=== PATIENT | female | born 1935 | race Caucasian/White ===

== ENCOUNTER 2017-06-18 15:02 | Inpatient (IN) ==
[2017-06-18 17:11] LABS: MANUAL DIFF NEEDED? NO
[2017-06-18 17:18] LABS: BASO% 0.1 % (0.0-0.8); EOS# 0.22 X1000 (0.0-0.7); EOS% 2.2 % (0.0-10.0); HEMOGLOBIN 12.1 g/dL (12.0-16.0); IMM GRAN# 0.04 X1000 (0.0-0.04); IMM GRAN% 0.4 % (0.0-0.5); LYMPH# 1.16 X1000 (1.2-3.4); LYMPH% 11.8 % (20.5-51.1); MCH 33.4 PG (27-31); MCHC 34.6 g/dL (33-37); MCV 96.7 FL (81-99); MONO# 0.88 X1000 (0.11-0.59); MONO% 8.9 % (1.7-9.3); MPV 10.1 FL (7.4-10.4); NEUT% 76.6 % (42.2-75.2); PLT 118 X1000 (130-400); RBC 3.62 XMIL (4.2-5.4)
[2017-06-18 17:24] LABS: INR 1.21; PROTIME 12.9 Seconds (9.2-11.7); PTT 31.5 Seconds (22.0-36.0)
[2017-06-18 17:31] LABS: CALCIUM 9.6 mg/dL (8.8-10.2); POTASSIUM 4.2 mmol/L (3.5-5.1); TOTAL BILIRUBIN 0.93 mg/dL (0.20-1.00); TOTAL PROTEIN 5.8 g/dL (6.3-8.3)
--- NOTE | 2017-06-18 17:39 | PROVIDER DOCUMENTATION ---
HPI-Abdominal Pain/GI Problem - General Chief Complaint: GI Bleed Stated Complaint: blood in ileostomy bag Time Seen by Provider: 06/18/17 17:11 Source: patient, family Allergies/Adverse Reactions: Patient Allergies Allergy/AdvReac Type Severity Reaction Status Date / Time cefuroxime axetil * Allergy Intermediate RASH Verified 06/18/17 17:14 [From Ceftin] clindamycin HCl * Allergy Intermediate RASH Verified 06/18/17 17:14 [From Cleocin] clindamycin palmitate HCl * Allergy Intermediate RASH Verified 06/18/17 17:14 [From Cleocin] clindamycin phosphate * Allergy Intermediate RASH Verified 06/18/17 17:14 [From Cleocin] erythromycin base Allergy Intermediate RASH Verified 06/18/17 17:14 [Erythromycin Base] infliximab [From Remicade] Allergy Intermediate RASH Verified 06/18/17 17:14 Penicillins Allergy Intermediate RASH Verified 06/18/17 17:14 mesalamine [From Pentasa] AdvReac RASH Verified 06/18/17 17:14 Home Medications: Home Medication List Medication Instructions Recorded Confirmed Last Taken Type Cholecalciferol (Vitamin D3) 1,000 unit PO DAILY 06/18/17 06/18/17 06/17/17 History [Vitamin D3] Ciclopirox Olamine 0.77% Cream DIRECTED 06/18/17 Unknown History [Loprox 0.77% Cream] Cyanocobalamin (Vitamin B-12) 2,000 mcg PO DAILY 06/18/17 06/18/17 06/17/17 12: 00 History [Vitamin B12] Ergocalciferol (Vitamin D2) 50,000 unit PO DAILY 06/18/17 06/18/17 06/17/17 History [Vitamin D2] Furosemide [Lasix] 40 mg PO DAILY 06/18/17 06/18/17 06/18/17 08:00 History Gabapentin 100 mg PO TID PRN 06/18/17 06/18/17 06/18/17 08:00 History Insulin Lispro [Humalog Kwikpen] 100 unit SQ 06/18/17 Unknown History Iron,Carbonyl [Feosol] 65 mg PO DAILY 06/18/17 06/18/17 06/18/17 08:00 History Isosorbide Mononitrate [Isosorbide 30 mg PO DAILY 06/18/17 06/18/1717 08: 00 History Mononitrate ER] Lactulose 10 gm PO TID 06/18/17 06/18/17 06/18/17 08:00 History Levothyroxine [Synthroid] 137 microgm PO DAILY 06/18/17 06/18/17 06/18/17 08:00 History Magnesium Cl D.r. [Slow-Mag] 2 tab PO 4XDAY 06/18/17 06/18/17 06/18/17 08:00 History Magnesium Oxide [Magnesium] 400 mg PO DAILY 06/18/17 06/18/17 06/17/17 History Multivit with Calcium,Iron,Min 1 each PO DAILY 06/18/17 06/18/17 06/17/17 12:00 History [One Daily Women's] Ondansetron HCl [Zofran] 8 mg PO PRN 06/18/17 Unknown History Pantoprazole [Protonix] 40 mg PO BID 06/18/17 06/18/17 06/18/17 08:00 History Rifaximin [Xifaxan] 550 mg PO BID 06/18/17 06/18/17 06/18/17 08:00 History Ropinirole [Requip] 1 mg PO DAILY 06/18/17 06/18/17 06/17/17 History Tramadol [Ultram] 50 mg PO Q6H PRN PRN 06/18/17 06/18/17 Unknown History Trazodone [Desyrel] 100 mg PO QHS 06/18/17 06/18/17 Unknown History Venlafaxine [Effexor] 37.5 mg PO DAILY 06/18/17 06/18/17 06/18/17 08:00 History Vitamin A Palmitate [Vitamin A] unit PO DAILY 06/18/17 06/17/17 12:00 History Vitamin B Complex/Vit B12 [B cap 06/18/17 06/17/17 12:00 History Complex with B-12 Drops Sl] Zinc 50 mg PO DAILY 06/18/17 06/18/17 06/18/17 08:00 History - History of Present Illness-ABD Nature of Presenting Problems: 81 year old obese WF with an ileostomy for colon cancer presents with c/o blood from bag, onset yesterday. pt reports her bag has been nearly full multiple times since. pt denies associated abd pain but report she is feeling more weak and shortness of breath than normal. pt reports a history of same in the past and the cause was bleeding ulcers. Review of Systems - Adult - REVIEW OF SYSTEMS - ADULT Constitutional: reports: see HPI, fatique. denies: chills, fever Eyes: reports: no symptoms reported. denies: discharge, blurred vision, double vision Ears, Nose, Mouth & Throat: reports: no symptoms reported. denies: ear discharge, ear pain, nose pain, loose teeth, throat pain, throat swelling Cardiovascular: reports: no symptoms reported. denies: chest pain, palpitations , syncope Respiratory: reports: no symptoms reported. denies: chronic cough, cough, shortness of breath, wheezing Gastrointestinal: reports: see HPI, poor appetite, rectal bleeding Genitourinary: reports: see HPI, hematuria. denies: dysuria, urgency Musculoskeletal: reports: no symptoms reported. denies: joint pain, joint swelling Integumentary: reports: no symptoms reported. denies: itching, skin sores/ulcer Neurological: reports: no symptoms reported. denies: ataxia, dizziness/vertigo , headache/migraines Psychiatric: reports: no symptoms reported Endocrine: reports: no symptoms reported Hematologic/Lymphatic: reports: see HPI, easy bruising, low blood count, transfusions Allergic/Immunologic: reports: no symptoms reported All Other Systems: Reviewed and Negative Past History - Adult - PAST MEDICAL HISTORY-ADULT Review of Records: reports: Old Records Reviewed, Nursing Assessment Review, Medications Reviewed, Social history reviewed & non-contributory. Major Childhood Illnesses: reports: denies history Cardiovascular: reports: CAD, HTN, LA, other Respiratory: reports: asthma Gastrointestinal: reports: cancer, Crohn's, GERD, hemorrhoids, obstruction, polyps, other Obstetrical/Gynecological: reports: denies history Genitourinary: reports: denies history Musculoskeletal: reports: chronic pain, intervertebral disc disease, other Neurological: reports: TIA Psychiatric: reports: denies history Endocrine/Immune: reports: Diabetes, thyroid disorder Diabetes controlled by:: Insulin Dependent Other Conditions: reports: denies history - PRIOR SURGERIES/PROCEDURES Surgical/Procedure History: reports: appendectomy, cholecystectomy, cardiac stent, , tonsillectomy, joint replacement, other (bariatric sx) - PRIOR HOSPITALIZATIONS Prior Hospitalizations: reports: for other non-related, for similar symptoms - IMMUNIZATION STATUS Childhood Immunizations: UTD, See Nurse Assessment Flu Vaccine: See Nurse Assessment - FAMILY HISTORY Family History: reviewed, not pertinent - SOCIAL HISTORY Smoking: quit greater than 1 year, cigarettes Substance Use: none/never Alcohol Use Frequency: never Physical Exam-General - PHYSICAL EXAM-ADULT Initial Vital Signs Reviewed: Yes - CONSTITUTIONAL General Appearance: appears well, alert, no apparent distress, obese. negative : mild distress, moderate distress, severe distress - EYES Eyes: pink conjunctivae. negative: pale conjunctivae - HEAD, EARS, NOSE, MOUTH & THROAT HENMT: normocephalic/atraumatic, moist mucous membranes - NECK Neck: non-tender, full range of motion, supple, normal inspection. negative: C- spine tenderness, limited range of motion, tender lateral, tender midline - RESPIRATORY Respiratory: chest non-tender, lungs clear, normal breath sounds, no pleuratic chest pain, no respiratory distress, no accessory muscle use - CARDIOVASCULAR Cardiovascular: normal peripheral pulses, regular rate, rhythm. negative: no edema (+1 pitting edema to BLE), bradycardia, tachycardia - GASTROINTESTINAL (ABDOMEN) Abdominal Exam: normal bowel sounds, non tender, soft, other (ileostomy bag to RLQ with burgundy colored drainage.). negative: distended, guarding, rigid, tenderness - MUSCULOSKELETAL Back Exam: normal inspection, no CVA tenderness, no vertebral tenderness. negative: CVA tenderness, decreased range of motion, swelling, vertebral tenderness Extremity: normal range of motion, non-tender, normal gait, normal inspection, no calf tenderness, normal capillary refill, pedal edema. negative: no pedal edema, deformity, erythema, slow capillary refill, swelling, tenderness Peripheral Pulses: radial (R): 2+, radial (L): 2+, dorsalis-pedis (R): 2+, dorsalis-pedis (L): 2+ - SKIN Integumentary: normal color, normal turgor, warm/dry. negative: pallor, petechiae, purpura, rash, swelling - NEUROLOGIC Neurologic: grossly normal, no motor/sensory deficits - PSYCHIATRIC Psych/Mental Status: normal mood/affect, normal thought content, normal thought process, oriented x 3 Progress - PLAN OF CARE/RESULTS Progress/Plan/Lab Results: Vital Signs - 8 hr 06/18/17 15:18 Temperature 98.7 F Pulse Rate 86 Respiratory Rate 18 Blood Pressure 159/71 O2 Sat by Pulse Oximetry 97 Laboratory Results - last 24 hr 06/18/17 06/18/17 06/18/17 15:25 15:25 15:25 WBC 9.87 RBC 3.62 L Hgb 12.1 Hct 35.0 L MCV 96.7 MCH 33.4 H MCHC 34.6 RDW Std Deviation 15.8 H Plt Count 118 L MPV 10.1 Immature Gran % (Auto) 0.4 Neut % (Auto) 76.6 H Lymph % (Auto) 11.8 L [place] % (Auto) 8.9 Eos % (Auto) 2.2 Baso % (Auto) 0.1 Immature Gran # (Auto) 0.04 Neut # (Auto) 7.56 H Lymph # (Auto) 1.16 L [place] # (Auto) 0.88 H Eos # (Auto) 0.22 Baso # (Auto) 0.01 PT 12.9 H INR 1.21 PTT (Actin FS) 31.5 Sodium 138 Potassium 4.2 Chloride 104 Carbon Dioxide 24 L Anion Gap 10 BUN 17 Creatinine 1.0 H Estimated GFR/1.73 m2 53 BUN/Creatinine Ratio 17 Glucose 222 H Calculated Osmolality 284 Calcium 9.6 Total Bilirubin 0.93 AST 24 ALT 18 Alkaline Phosphatase 107 H Total Protein 5.8 L Albumin 3.0 L Globulin 2.8 Albumin/Globulin Ratio 1.1 Orders Category Date Time Status Saline Loc NOW Care 06/18/17 17:30 Ordered FLAT/UPRIGHT ABD/1 VIEW CHEST [RAD] Stat Exams 06/18/17 17:29 Ordered CBC WITH ELECTRONIC DIFF [HEME] Stat Lab 06/18/17 15:25 Completed COMPREHENSIVE METABOLIC PANEL [CHEM] Stat Lab 06/18/17 15:25 Received PROTIME WITH INR [COAG] Stat Lab 06/18/17 15:25 Completed PTT [COAG] Stat Lab 06/18/17 15:25 Completed Stool [OCCULT BLOOD SCREENING] [STOOL] Stat Lab 06/18/17 17:35 Ordered TYPE & SCREEN [BBK] Stat Lab 06/18/17 17:29 Uncollected UA NIMS W/REFLEX CULT [URINALYSIS] Stat Lab 06/18/17 17:29 Uncollected Result Diagrams: 06/18/17 15:25 06/18/17 15:25 - REASSESSMENT Reassessment #2 Status: improving (Pt was seen and examined at bedside. Her son is also present. This is a pt with hx of colon CA s/p colectomy , crohn who came to ED due to bleeding in her ileostomy ( 3 bags) which has now resolved. Pt had prior similar complaints and needed to be sent to [facility] for gastric ulcers. Abd is soft , non tender, Stoma looks pink, moist, Ileostomy bag is empty at this time.) - CHANGE OF SHIFT REPORT (ED Provider) Report Given and Care Transferred to:: Dr. Valdivia Time of Transfer: 18:11 Items Pending: XRAY Results Departure - Departure Date of Disposition Decision: 06/18/17 (spoke to Dr Quinn about Admission) Time of Disposition Decision: 20:17 DIAGNOSIS: GI (gastrointestinal bleed) Disposition: ADMITTED INPATIENT 09 Certified Medical Emergency: Emergent Condition: Stable Referrals and Follow-Ups: Azul Manrique MD [Primary Care Provider] - - Critical Care Note This patient required my direct & personal management of CC.: No Attestation - Physician/ YAJAIRA Attestation Patient care was provided by Advanced Practice Provider:: Yes Advanced Practice Provider:: Gilma Wood Advanced Practice Provider documentation review:: The Mid-level provider documentation, treatment plan and medical decision making was reviewed by the physician who agrees with all treatment and medical decision making by the MLP. The physician spent face to face time with patient:: Yes Advanced Practice Provider documentation review:: Supervising physician onsite and consulted in the evaluation and care of this patient. The physician did have a face to face encounter with the patient.
[2017-06-18 17:48] LABS: URINE CULTURE NEEDED? NO; URINE MICRO REVIEW NEEDED? NO; URINE SOURCE CLEAN CATCH
[2017-06-18 17:51] LABS: BILIRUBIN URINE NEGATIVE (NEGATIVE); BLOOD URINE SMALL (NEGATIVE); COLOR YELLOW; GLUCOSE URINE TRACE mg/dL (NEGATIVE); LEUKOCYTES URINE NEGATIVE (NEGATIVE); NITRITE URINE NEGATIVE (NEGATIVE); PH URINE 5.5; PROTEIN URINE 100 mg/dL (NEGATIVE); SP GRAVITY URINE 1.022; TURBIDITY URINE CLEAR (CLEAR); UR EPITHELIAL CELLS <10 /HPF (<10); URINE BACTERIA NEGATIVE /HPF; URINE RBC <10 /HPF (<10); URINE WBC <10 /HPF (<10); UROBILINOGEN URINE NORMAL (NORMAL)
--- NOTE | 2017-06-18 18:07 | Diag Imaging Result Doc PS360 ---
EXAM: FLAT/UPRIGHT ABD/1 VIEW CHEST HISTORY: bleedinig from ileostomy TECHNIQUE: Three views COMPARISON: 10/17/2016 FINDINGS: There is a right-sided portacatheter. This is unchanged. The lungs are well expanded. No pneumonia. No cardiomegaly. No free air beneath the diaphragm. There are multiple surgical clips and a large stent in the upper right abdomen. The bowel loops are not dilated. No organomegaly. Mild scoliosis. IMPRESSION: No acute abnormality. Electronically signed by Jose Lainez 06/18/2017 6:05 PM
[2017-06-18] MEDS ORDERED: SODIUM CHLORIDE 0.9% INJ ONE (21:22)
--- NOTE | 2017-06-18 21:54 | HISTORY AND PHYSICAL ---
PRIMARY CARE PHYSICIAN: Azul Manrique MD CHIEF COMPLAINT: Blood in the ileostomy bag. HISTORY OF PRESENTING ILLNESS: A 81-year-old female with a history of colon cancer, coronary artery disease, SALINAS cirrhosis, diabetes mellitus type 2, and hypothyroidism who presented to emergency department with 1-day history of having gross amount of blood in her ileostomy bag. She states that she had a change it out several times. She was evaluated in the ER. She had a Hemoccult done which was positive and due to her presenting symptoms, it was thought that she would need hospitalization for further management. At the time of my examination, she had denied any headache, fever, chills, chest pain, shortness of breath or any weight changes. PAST MEDICAL HISTORY: Colon cancer, coronary artery disease/IL, SALINAS cirrhosis, diabetes mellitus type 2, hypothyroidism, Crohn's. PAST SURGICAL HISTORY: Coronary stent. TIPS. Hysterectomy. Cholecystectomy. Appendectomy. Left knee replacement. Back surgery. Cataract surgery bilaterally. ALLERGIES: Penicillin. Erythromycin. Pentasa. Humira. Clindamycin. Cefuroxime. CURRENT MEDICATIONS: As in the medication reconciliation sheet. SOCIAL HISTORY: She is a former smoker. No history of alcohol or illicit drug use. She is and she lives in assisted living facility. FAMILY HISTORY: Positive for coronary artery disease in father. REVIEW OF SYSTEMS: [employer] is as listed in HPI. Other systems negative. PHYSICAL EXAMINATION: GENERAL: Cooperative, friendly female. She is resting comfortably now. VITAL SIGNS: Temperature 98.7 degrees, pulse 86, respiration 18, blood pressure 159/71. HEENT: Atraumatic, normocephalic. Extraocular movements intact. PERRLA. NECK: Supple. CHEST: Clear to auscultation. CARDIOVASCULAR: Regular rate and rhythm. ABDOMEN: Soft, ileostomy bag noted. EXTREMITIES: Trace edema. NEUROLOGIC: She is awake, alert, oriented x3. : No bladder distention. SKIN: Warm. LABORATORIES AND STUDIES: WBCs 9.87, hemoglobin 12.1, hematocrit 35, platelets 118,000. Sodium 138, potassium 4.2, chloride 104, CO2 24, BUN is 17, creatinine 1, glucose is 222. ASSESSMENT: A 81-year-old female with a history of colon cancer, status post ileostomy bag, coronary artery disease, SALINAS cirrhosis, diabetes mellitus type 2, and hypothyroidism, who presented to the emergency department with 1-day history of having blood in her ileostomy bag. She was evaluated in the ER. She had a Hemoccult done on the stool from the bag and it was positive, and due to her presenting symptoms, she will need hospitalization for further management. 1. Gastrointestinal bleed, suspected upper. 2. Colon cancer. 3. Diabetes mellitus type 2. 4. Nonalcoholic steatohepatitis cirrhosis. 5. Hypothyroidism. PLAN: 1. We will admit patient to medical floor with telemetry. 2. Keep patient nothing per oral. 3. Put patient on Protonix IV b.i.d. 4. Consult Gastroenterology. 5. Monitor blood glucose and put patient on glycemic protocol. 6. We will restart home medications. 7. Put patient on deep venous thrombosis prophylaxis, SCDs. 8. Continue to follow and reassess. cc: Mateo Quinn MD
[2017-06-18] MEDS ORDERED: NEURONTIN PO PRN (21:58)
[2017-06-18] MEDS ORDERED: NS 1,000 ML IV ONE (21:58)
[2017-06-18] MEDS ORDERED: ZOFRAN IV PRN (21:58)
[2017-06-18] MEDS: XIFAXAN PO SCH (23:35)
[2017-06-19] MEDS ORDERED: TYLENOL PO PRN (01:26)
[2017-06-19] MEDS: DESYREL PO SCH ×3 (01:48→22:18)
[2017-06-19 05:42] LABS: MANUAL DIFF NEEDED? NO
[2017-06-19 06:06] LABS: CALCIUM 8.9 mg/dL (8.8-10.2); POTASSIUM 4.5 mmol/L (3.5-5.1)
[2017-06-19 06:10] LABS: BASO% 0.1 % (0.0-0.8); EOS# 0.22 X1000 (0.0-0.7); EOS% 2.7 % (0.0-10.0); HEMATOCRIT 34.8 % (37.0-47.0); HEMOGLOBIN 11.9 g/dL (12.0-16.0); IMM GRAN# 0.02 X1000 (0.0-0.04); IMM GRAN% 0.2 % (0.0-0.5); LYMPH# 1.14 X1000 (1.2-3.4); LYMPH% 13.8 % (20.5-51.1); MCH 33.2 PG (27-31); MCHC 34.2 g/dL (33-37); MCV 97.2 FL (81-99); MONO# 0.71 X1000 (0.11-0.59); MONO% 8.6 % (1.7-9.3); MPV 10.1 FL (7.4-10.4); NEUT% 74.6 % (42.2-75.2); PLT 94 X1000 (130-400); RBC 3.58 XMIL (4.2-5.4)
[2017-06-19] MEDS: HUMULIN R SUBQ SCH ×5 (06:33→22:18)
[2017-06-19] MEDS: SYNTHROID PO SCH ×2 (06:39→06:40)
[2017-06-19 06:59] LABS: INR 1.35; PROTIME 14.4 Seconds (9.2-11.7)
[2017-06-19 07:18] LABS: ALBUMIN 2.8 g/dL (3.5-5.0); DIRECT BILIRUBIN 0.4 mg/dL (0.00-0.20); TOTAL BILIRUBIN 1.58 mg/dL (0.20-1.00); TOTAL PROTEIN 5.3 g/dL (6.3-8.3)
--- NOTE | 2017-06-19 08:31 | Diag Imaging Result Doc PS360 ---
EXAM: US ABDOMEN-COMPLETE HISTORY: assess flow in TIPS; peristomal varices TECHNIQUE: COMPARISON: 10/17/2016 FINDINGS: Normal pancreas. Normal inferior vena cava. There is flow in the tips shunt. No focal hepatic abnormality. Common bile duct measures 6 mm. Dilated right renal pelvis and addition to what appears to be parapelvic cysts. This appearance is similar to that of the prior exam. Normal left kidney. No hydronephrosis. Several cysts in the left kidney. Spleen is enlarged measuring 16.5 cm. No ascites. IMPRESSION: 1.There is flow in the hepatic shunt 2.Splenomegaly 3.Cholecystectomy 4.Bilateral renal cysts in addition to fullness of the right renal pelvis Electronically signed by Jose Lainez 06/19/2017 8:29 AM
[2017-06-19] MEDS ORDERED: CITRATE OF MAGNESIA PO ONE (08:33)
[2017-06-19] MEDS ORDERED: IMDUR PO SCH (09:00)
[2017-06-19] MEDS ORDERED: REQUIP PO SCH (09:00)
[2017-06-19] MEDS ORDERED: EFFEXOR PO SCH (09:00)
[2017-06-19] MEDS ORDERED: PROTONIX IV SCH (09:00)
[2017-06-19] MEDS ORDERED: LASIX PO SCH (09:00)
[2017-06-19] MEDS: LACTULOSE PO SCH ×3 (10:01→17:24)
[2017-06-19] MEDS: XIFAXAN PO SCH ×2 (10:02→22:18)
[2017-06-19] MEDS ORDERED: XYLOCAINE-MPF 2% ONE (14:31)
[2017-06-19] MEDS ORDERED: ROBINUL ONE (14:31)
[2017-06-19] MEDS ORDERED: FENTANYL ONE (14:33)
[2017-06-19] MEDS ORDERED: DIPRIVAN 1% ONE ×2 (14:34→16:41)
[2017-06-19] MEDS ORDERED: ZOFRAN ONE (16:12)
--- NOTE | 2017-06-19 16:41 | PROGRESS NOTE ---
DATE: 06/19/2017 SUBJECTIVE: Today Ms. Hanley refers to be doing fine. She has not seen any more blood in the ostomy bag. OBJECTIVE: Vital signs: Blood pressure is 125/46, pulse is 61, respirations 20, temperature 98.6 degrees. General Examination: Ms. Hanley is a 81-year-old, female. She is in bed, does not seem to be in any remarkable distress. HEENT: Mucosa is pink and moist. Anicteric. Acyanotic. Neck: Supple. Chest: Good air entry bilaterally. No crepitations. No rhonchi. Cardiovascular: Regular rate and rhythm. Abdomen: Soft, nontender. There is an ostomy bag on the anterior abdominal wall. There is adequate drainage. I do not see any discoloration of the output and it does not look bloody either. Extremities: No pedal edema. Central Nervous System: Patient is awake, alert, oriented x4. There is no focal neurological deficit. LABORATORY DATA: WBC is 8.27, hemoglobin is 11.9, platelet count is 94,000. Chemistry is also reviewed, unremarkable. Renal function is normal. Albumin is 2.8. An abdominal x-ray which was done on presentation shows no acute disease. Ultrasound of the abdomen shows there is flow in the hepatic shunt, splenomegaly, there are bilateral cysts. ASSESSMENT: 1. Blood in the ostomy bag suspicious for GI bleed. Patient has been evaluated by Dr. Etienne and I think there is a plan for an ileoscopy today. 2. History of cirrhosis secondary to nonalcoholic steatohepatitis. 3. Hypothyroidism stable. 4. History of colon cancer noted. PLAN: Ms. Hanley is stable. She is going for an ileoscopy this afternoon with Dr. Etienne. If there are no remarkable findings and her hemoglobin and hematocrit is stable, I think she can be discharged tomorrow after the procedure. cc: Fred Santana MD
[2017-06-19 18:11] LABS: MANUAL DIFF NEEDED? NO
[2017-06-19 18:14] LABS: BASO% 0.1 % (0.0-0.8); EOS# 0.24 X1000 (0.0-0.7); EOS% 2.4 % (0.0-10.0); HEMATOCRIT 35.2 % (37.0-47.0); HEMOGLOBIN 12.1 g/dL (12.0-16.0); IMM GRAN# 0.02 X1000 (0.0-0.04); IMM GRAN% 0.2 % (0.0-0.5); LYMPH# 1.31 X1000 (1.2-3.4); MCH 33.4 PG (27-31); MCHC 34.4 g/dL (33-37); MCV 97.2 FL (81-99); MONO# 0.97 X1000 (0.11-0.59); MONO% 9.7 % (1.7-9.3); MPV 9.7 FL (7.4-10.4); NEUT% 74.6 % (42.2-75.2); PLT 115 X1000 (130-400); RBC 3.62 XMIL (4.2-5.4)
--- NOTE | 2017-06-19 21:45 | CONSULTATION ---
DATE OF CONSULTATION: 06/19/2017 REFERRING PHYSICIAN: Fred Santana M.D. PRIMARY CARE PROVIDER: Azul Manrique M.D. INDICATION FOR CONSULTATION: 1. Blood in the ostomy bag. 2. Black stools. 3. Known history of peptic ulcer disease. 4. Known history of cirrhosis with esophageal and peristomal varices. 5. History of hepatic encephalopathy status post TIPS. HISTORY OF PRESENT ILLNESS: The patient is a 81-year-old, white female who has been followed in our clinic for several years. She has a complex medical history from a GI perspective that includes fatty liver disease complicated by cirrhosis. She also has a history of having undergone a vertical banded gastroplasty in the . Because she had a reaction to the implanted device, she had a takedown of her vertical banded gastroplasty in the . Following the takedown, she has had persistent nonhealing gastric ulcers that have bled on multiple occasions. Her last GI bleed was in December or December 2016. She was in her usual state of health and doing well following TIPS placement at [facility]. Approximately 3 days ago, she was lifting a heavy box in her apartment. This was followed by the onset of dark stools followed by copious amounts of bright red blood in the ostomy bag. She presented to the emergency room last night with guaiac-positive stools and dark red blood in the ostomy bag. She denies dizziness, nausea, vomiting, or abdominal pain per se. We are asked to evaluate the patient and perform endoscopic intervention. This morning, she underwent an abdominal ultrasound that revealed flow in the TIPS. She has splenomegaly and evidence of cirrhosis which is stable. She has common bile duct dilation at 6 mm. She had a dilated right renal pelvis and parapelvic cysts. She has a normal left kidney. There is no evidence of hydronephrosis. The left kidney was remarkable for multiple cysts that appeared benign. There was no evidence of hydronephrosis. Otherwise, the patient denies complaints. Because of the bleeding, we were asked to participate in her care. PAST MEDICAL HISTORY: 1. Crohn's disease. 2. Colon cancer status post total colectomy with an end-ileostomy. 3. Chronically elevated CEA consistent with metastatic colon cancer. 4. History of multiple colon polyps. 5. History of ischemic colitis which contributed to the need for colectomy. 6. Persistent iron-deficiency anemia. 7. Peristomal varices status post TIPS procedure at [facility]. She is followed by Dr. Oliverio Thurston. 8. 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 9. Central morbid obesity. 10. Large ventral hernia that is nonoperable given her age and comorbidities. 11. Cirrhosis secondary to fatty liver and steatohepatitis. 12. Portal hypertension with esophageal varices. 13. Multiple colonic and gastric arteriovenous malformations. 14. Persistent gastritis. 15. Multiple nonhealing gastric ulcers with recurrent GI bleeding. 16. Vertical banded gastroplasty for the treatment of obesity with retained band material resulting in nonhealing gastric ulcers. 17. History of gastroesophageal reflux disease. 18. History of erosive gastritis. 19. Small esophageal diverticulum. 20. Hypothyroidism. 21. Zinc deficiency. 22. Magnesium deficiency. 23. Vitamin B12 deficiency. 24. Vitamin D deficiency. 25. Muscle spasms. 26. Chronic pain syndrome. 27. Depression. 28. Urinary tract infection. PAST SURGICAL HISTORY: 1. Total colectomy with end-ileostomy. 2. Left knee surgery with replacement. 3. Vertical banded gastroplasty. 4. Reversal of vertical banded gastroplasty. 5. Hip procedures. 6. Multiple endoscopies with advanced endoscopic intervention including Endoclip placement for recurrent GI bleeding. MEDICATION ALLERGIES: 1. Cefuroxime. 2. Clindamycin. 3. Erythromycin. 4. Infliximab. 5. Mesalamine. 6. Penicillin. 7. Cleocin. 8. Pentasa. HOME MEDICATIONS: 1. Zinc 50 mg daily. 2. B complex with vitamin B12 caplet. 3. Vitamin A. 4. Effexor. 5. Desyrel. 6. Ultram. 7. Requip. 8. Xifaxan. 9. Protonix. 10. Zofran. 11. One A Day Multivitamin. 12. Magnesium oxide. 13. Slow-Mag. 14. Synthroid. 15. Lactulose. 16. Isosorbide. 17. Feosol. 18. Humalog Quick Pen. 19. Gabapentin. 20. Lasix. 21. Vitamin D 50,000 units weekly. 22. Vitamin D 1000 units daily. 23. Vitamin B12. 24. Ciclopirox cream. FAMILY HISTORY: Remarkable for coronary artery disease in her father. SOCIAL HISTORY: Negative for alcohol, tobacco or recreational drug use. She is a former smoker. She is a after 56 years of marriage. She has 4 actively involved sons. REVIEW OF SYSTEMS: Remarkable for bleeding. She denies mental confusion, memory loss or abdominal pain. She denies fevers, chills, nausea with vomiting. She notes heartburn and intermittent difficulty with dry foods since her bariatric surgery. She does admit that she has early satiety intermittently. PHYSICAL EXAMINATION: General: She is in no acute distress. Vital Signs: Blood pressure is 134/57, pulse 80, respiration 20, temperature of 98.6 degrees. HEENT: Negative for jaundice. Oropharyngeal mucosal membranes are moist. Neck: Supple. Chest: Clear to auscultation with normal respiratory effort. Cardiovascular Examination: Reveals regular rate and rhythm. No murmurs, gallops, or rubs. Abdominal Examination: Reveals normoactive bowel sounds. The abdomen is soft and nontender. She has a large ventral hernia. She has an end ileostomy in the right lower quadrant. There is orange-colored exudate in the bag. Neurologic Examination: She is alert and oriented x3 with appropriate mood, affect, and memory. There is no evidence of asterixis. Extremities: Bilaterally are negative for cyanosis, clubbing, or edema. OBJECTIVE DATA: Reveals a hemoglobin of 11.9 with hematocrit of 34.8, and a white count of 8.27. She has 94,000 platelets. Her PT is 14.4 with an INR of 1.35. Sodium is 141, potassium 4.5, chloride 108, CO2 26, BUN 16, creatinine 0.9 with a glucose 134. Calcium is 8.9. Total bilirubin is 1.58, AST 23, ALT 16, alkaline phosphatase 80, direct bilirubin 0.41. Her total protein is 5.3 and albumin is 2.8. Her CRP is 1.02 and her ammonia is 51. IMPRESSION: 1. GI bleed. 2. GI history as above. 3. Dilated right renal pelvis. 4. Dilated common bile duct on ultrasound. 5. Possible early satiety. RECOMMENDATION: 1. I will schedule the patient for EGD and flexible sigmoidoscopy today. If the source of bleeding is found, we will plan endoscopic intervention. 2. Although her TIPS shows flow on ultrasound, if the varices are bleeding, the TIPS will need revision at [facility]. 3. If no source of bleeding is found, I recommend an outpatient capsule endoscopy. Because of her surgical anatomy, it will need to be placed endoscopically. 4. The patient likely has diabetic gastroparesis. However, she is not a candidate for Reglan given her age and comorbidities. I will empirically placed her on a gastroparesis diet following her endoscopic evaluation to help control her reflux symptoms. 5. The patient had a recent PET scan this week by Dr. Jose M Kraus, her oncologist. We will obtain those results to help determine her clinical course. 6. For the dilated right renal pelvis, I will consult Dr. Hunter Salas as an outpatient. I will obtain a CT urogram to assess the right renal pelvis prior to her clinic visit. 7. The ultrasound reports a dilated common bile duct. I will review those findings with Radiology to determine if she needs any intervention. Potential intervention will be based on the progression of her elevated bilirubin. Clinically, she is asymptomatic. Because she is very high risk for complications, I will only intervene if there is direct benefit. 8. Additional recommendations to follow based on her clinical course. 9. She should return to clinic 2-3 weeks after hospital discharge for interval reassessment. cc: MD Fred Cha MD Emily M. McClure, MD MTDD
--- NOTE | 2017-06-19 22:06 | OPERATIVE NOTE ---
PROCEDURE DATE: 06/19/2017 REFERRING PHYSICIAN: Fred Santana M.D. PRIMARY CARE PROVIDER: Azul Manrique M.D. INDICATION FOR PROCEDURE: Bright red blood in the ostomy bag. PROCEDURE PERFORMED: Ileoscopy with a flexible sigmoidoscopy to 60 cm from insertion. CONSENT: Informed consent was obtained from the patient prior to the procedure. The risks, benefits, and alternatives were discussed. MEDICATION: The patient received monitored anesthesia care. PERFORMING PHYSICIAN: Dorcas Etienne M.D. ASSISTANTS: 1. [facility] 2. Ventura Fong RN. 3. Yessy Gaspar CRNA. 4. Blake Noonan M.D. (anesthesia). COMPLICATIONS: There were no complications. ESTIMATED BLOOD LOSS: None. SPECIMENS REMOVED: None. FINDINGS: After the EGD was performed, the upper endoscope was inserted through the ostomy into the ileum. It was advanced to 60 cm from insertion. The entire ileal mucosa appeared pink and normal with no evidence of mesenteric ischemia, Crohn disease or ulceration. At the tip of the ostomy in the stoma, there were visible peristomal varices that were hyperemic but were not actively bleeding. After the exam was complete, the lumen was decompressed and the scope was removed without incident. IMPRESSION: 1. Peristomal varices, nonbleeding but inflamed. 2. Normal ileal mucosa to 60 cm. RECOMMENDATION: 1. The patient has evidence of peristomal varices on ultrasound and on endoscopy. This is most likely the source of bleeding. I will confer with Dr. Bairon Thurston at [facility] to determine treatment options in light of her TIPS and the fact that the patient has had hypotension at home while she was on nadolol. I suspect that she needs revision of her TIPS. 2. Please check a CBC at this time. If her hemoglobin is stable, it is reasonable to manage her as an outpatient. 3. She was instructed to present to the emergency room for CT angiogram if she has bleeding again. 4. If the bleeding recurs before her evaluation at [facility], I will order a capsule endoscopy to assess her small bowel for AVMs and other lesions as she has a known history of colon cancer. 5. We will also need to obtain a copy of her most recent PET scan from Dr. Kraus to determine if she has metastatic lesions that involve her small bowel. 6. I will have the patient return to clinic in 2-3 weeks for interval reassessment. cc: Azul Manrique MD MTDD
[2017-06-19] MEDS: ULTRAM PO PRN (22:18)
--- NOTE | 2017-06-19 22:26 | OPERATIVE NOTE ---
PROCEDURE DATE: 06/19/2017 REFERRING PHYSICIAN: Fred Santana M.D. PRIMARY CARE PROVIDER: Azul Manrique M.D. INDICATION FOR PROCEDURE: 1. Bright red blood in the ostomy bag. 2. History of dark stools. PROCEDURE PERFORMED: Esophagogastroduodenoscopy. CONSENT: Informed consent was obtained from the patient prior to the procedure. The risks, benefits, and alternatives were discussed. MEDICATION: The patient received monitored anesthesia care. PERFORMING PHYSICIAN: Dorcas Etienne M.D. ASSISTANTS: 1. [facility] 2. Ventura Fong RN. 3. Yessy Gaspar CRNA. 4. Blake Noonan M.D. (anesthesia). COMPLICATIONS: There were no complications. ESTIMATED BLOOD LOSS: None. SPECIMENS REMOVED: None. FINDINGS: After sedation was achieved, the upper endoscope was inserted to the 2nd portion of the duodenum. The hypopharynx appeared normal. The mucosa of the tubular esophagus appeared normal. There were [id number] varices present in the tubular esophagus. The GE junction was present at 40 cm from the incisors. In the gastric lumen, there was a proximal stomach , divided by a partition in the distal stomach. There are surgical changes of the patient's previous vertical banded gastroplasty. There are also 3 lumens, including 2 man-made lumens, and a natural orifice. There are 3 partially-healed ulcers, with 2 having Endoclips placed at the time of her last GI bleed. The 3rd ulcer in the proximal portion of the stomach has had interval reduction in size, but remains persistent. There was no evidence of active bleeding. There was an anastomotic ulcer in one of the surgically created lumens, with a whitish base and no stigmata of bleeding. In both the proximal and distal portion of the stomach above and below the partition, there were bilious secretions that were pooling in the stomach, consistent with gastric stasis or gastroparesis. After evacuation, there was nonerosive gastritis in the antrum, fundus, and body. There were also scattered nonbleeding AVMs. The pylorus appeared endoscopically normal. The duodenum appeared normal to the 2nd portion of the duodenum. There were no abnormalities at the level of the ampulla of Vater. After the exam was complete, the lumen was decompressed, and the scope was removed without incident. IMPRESSION: 1. [id number] varices in the tubular esophagus. 2. Surgical changes consistent with a vertical banded gastroplasty, and subsequent takedown. There are 3 lumens, including 2 surgical lumens, and 1 pauma lumen. There are 3 nonhealing persistent ulcers in the gastric body. There are 2 ulcers in the body, one at the anastomosis, one in the body, and one in the cardia. There was no stigmata of active bleeding. Please note that 2 of the nonhealing ulcers had Endoclips placed. 3. On the distal surface of the gastric partition, there is a 4th ulcer, with Endoclips placed for hemostasis. 4. Nonerosive gastritis. 5. Arteriovenous malformations. 6. Normal duodenum. 7. No source of bleeding was found. RECOMMENDATION: 1. Resume Protonix 40 mg p.o. b.i.d. 2. Resume Carafate 1 g 4 times a day. 3. I will check aluminum level prior to discharge, as Carafate contains trace amounts of aluminum, and should be monitored. 4. Resume Protonix 40 mg p.o. b.i.d. She needs maximal acid suppression, given her nonhealing ulcers. 5. Given the absence of active bleeding, I will hold her Carafate at this time. 6. We will need to discuss the nadolol therapy with Dr. Raisa Thurston at [facility]. If she is hypotensive at home, will need to hold her therapy. 7. I would resume the lactulose and Xifaxan for management of her hepatic encephalopathy. 8. If she has brisk bleeding, I would consider a CT angiogram to identify the source of bleeding. 9. I will proceed with the flexible sigmoidoscopy to assess the ileum, as previously scheduled. 10. We will have the patient return to clinic 2-3 weeks after hospital discharge for interval reassessment. cc: MD Azul Cha MD Raphael K. Quansah, MD MTDD
[2017-06-20] MEDS: SYNTHROID PO SCH ×2 (05:48→06:08)
[2017-06-20] MEDS: HUMULIN R SUBQ SCH (06:08)
[2017-06-20] MEDS: ULTRAM PO PRN (06:46)
[2017-06-20 07:41] VITALS: BP 154/58
--- NOTE | 2017-06-20 09:49 | DISCHARGE SUMMARY ---
ADMISSION DATE: 06/18/2017 DISCHARGE DATE: 06/20/2017 DISPOSITION: Home. FOLLOWUP: 1. Dr. Etienne. 2. Dr. Azul Manrique. PROCEDURES: Invasive procedure done during this admission, EGD was done that shows small to medium varices in the tubular esophagus, some gastric ulcers, erosive gastritis and some AV malformation. Ileoscopy was done with flexible sigmoidoscopy that showed peristomal varices and a normal ileal mucosa up to 60 cm. ADMISSION DIAGNOSES: 1. Gastrointestinal bleed. 2. Colon cancer. 3. Diabetes mellitus. 4. Nonalcoholic steatohepatitis cirrhosis. 5. Hypothyroidism. DIAGNOSES AT THE TIME OF DISCHARGE: 1. Blood in ostomy bag suspicious for gastrointestinal bleed likely from peristomal varices. 2. History of liver cirrhosis secondary to nonalcoholic steatohepatitis. 3. Hypothyroidism. 4. History of colon cancer. 5. Esophageal varices. 6. Gastric ulcers. DISCHARGE MEDICATIONS: 1. Rifaximin 500 b.i.d. 2. Effexor. 3. Magnesium. 4. Requip 1 mg p.o. daily. 5. Pantoprazole 40 mg b.i.d. 6. Levothyroxine 137 mcg daily. 7. Lactulose 10 mg 3 times per day. 8. Imdur 30 mg daily. 9. Iron. 10. Furosemide 40 mg daily. 11. Cholecalciferol 1000 units daily. 12. Multivitamin tablets. 13. Gabapentin 100 mg 3 times per day. 14. Insulin lispro on sliding scale. PRESENTING COMPLAINT: Blood in the ileostomy bag. HISTORY OF PRESENTING COMPLAINT: Ms. Hanley is a 81-year-old female with a history of colon cancer, coronary artery disease and SALINAS presented to the emergency department because of a lot of blood in the ostomy bag. The patient was admitted for further medical evaluation. HOSPITAL COURSE: The patient was hydrated. Hemoglobin and hematocrit was followed. There was really not any remarkable drop. GI was consulted. EGD was done which the report is in the chart. The ileoscopy was also done. The mucosa of the ileum was completely normal except for some peristomal varices which we think that could have been the source of bleed. Patient hemoglobin and hematocrit was repeated after the procedure was completely stable. I spoke extensively with Dr. Etienne and she was in agreement that the patient could go home, unfortunately it was too late yesterday so will discharge her this morning. Of note, the patient had an ultrasound of the abdomen which shows some fullness in the right renal pelvis. As per Dr. Etienne, she had consulted Dr. Salas, the urologist, and Dr. Salas recommended that the patient could be seen on outpatient basis with a CT scan of the abdomen and pelvis to check on the fullness in the renal pelvis. Patient will be given an indication to do this test before she sees Dr. Salas. At the time of discharge there are not any pending labs or imaging studies. This morning the patient vitals are stable. Blood pressure is 111/47, pulse is 71, respirations 16, temperature 98.6 degrees. Patient will therefore be discharged in a very stable condition. She will follow up with her primary care doctor. She will also follow with Dr. Etienne and with Dr. Salas. Time spent for this discharge is 37 minutes. cc: Fred Santana MD
== END 2017-06-20 10:34 | disposition home or self-care (01) ==
LOC: ED 15:02 → 4N 21:44 → SUATTDRO 21:44
PROVIDERS: ATTEND Internal Medicine